=== PATIENT | male | born 2000 | race Two or more races ===

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

== ENCOUNTER 2021-12-14 21:22 | Emergency (ER) | payer MEDICAID ==
[~2021-12-14] VITALS: Ht 175.3 cm; Wt 72.6 kg
[2021-12-14 21:25] VITALS: BP 117/91
== END 2021-12-14 23:39 | disposition home or self-care (01) ==
LOC: ER 21:25
DX: S00.31XA Abrasion of nose, initial encounter (principal); Y04.2XXA Assault by strike against or bumped into by another person, initial encounter; Y93.89 Activity, other specified; Y92.89 Other specified places as the place of occurrence of the external cause; Y99.8 Other external cause status
CPT/HCPCS: 70486

== ENCOUNTER 2023-10-19 22:11 | Emergency (ER) | payer SELFPAY ==
[~2023-10-19] VITALS: Ht 175.3 cm; Wt 80.8 kg
[2023-10-19 22:43] VITALS: BP 129/71; PULSE 71; RESP 16; O2SAT 99
[2023-10-20] MEDS ORDERED: IBUP1TAB5 PO (01:54)
[2023-10-20] MEDS ORDERED: KETOROLAC TROMETH 60MG/2ML VIAL IM ONE (02:00)
[2023-10-20] MEDS ORDERED: HYDROcodone-ACET 5/325MG TAB PO ONE (02:00)
== END 2023-10-20 03:17 | disposition home or self-care (01) ==
LOC: ER 22:11
DX: S93.402A Sprain of unspecified ligament of left ankle, initial encounter (principal); X50.1XXA Overexertion from prolonged static or awkward postures, initial encounter; Y93.23 Activity, snow (alpine) (downhill) skiing, snowboarding, sledding, tobogganing and snow tubing; Y92.89 Other specified places as the place of occurrence of the external cause; Y99.8 Other external cause status
CPT/HCPCS: 29515; 73610; 96372; 99283; J1885

== ENCOUNTER 2025-01-25 01:00 | Emergency (ER) | payer MEDICAID, OTHER ==
[~2025-01-25] VITALS: Ht 175.3 cm; Wt 81.8 kg
[~2025-01-25 01:00] MED LIST: IBUP1TAB5 PO
[2025-01-25 01:07] VITALS: BP 124/62; PULSE 65; RESP 14; TEMP 97.9; O2SAT 95
[2025-01-25] MEDS ORDERED: NALOXONE HCL 1MG/ML 2ML SYRINGE IV ONE (01:15)
== END 2025-01-25 01:36 | disposition left against medical advice (07) ==
LOC: EDBD 01:00 → ER 01:00
DX: T40.411A Poisoning by fentanyl or fentanyl analogs, accidental (unintentional), initial encounter (principal); Z53.21 Procedure and treatment not carried out due to patient leaving prior to being seen by health care provider; Y92.89 Other specified places as the place of occurrence of the external cause

== ENCOUNTER 2025-01-25 01:48 | Inpatient (IN) | payer MEDICAID, OTHER ==
[~2025-01-25] VITALS: Ht 175.3 cm; Wt 68.2 kg
[2025-01-25 02:00] VITALS: PULSE 67; RESP 11; O2SAT 99
--- NOTE | 2025-01-25 03:16 | ED.PDOC ---
History of Present Illness HPI Comments 24 y/o M, with a history of polysubstance abuse, is BIBA for c/o overdose, today. Per EMS report, patient's girlfriend called after endorsing on patient becoming altered after reported fentanyl use, earlier, this morning. EMS notes positive response from patient with 0.5mg Narcan use. Patient, at time of ass essment, denies any fentanyl use and reports using a "blunt" instead. He denies any symptoms at this time. Chief Complaint: Overdose Time Seen by MD: 00:30 Primary Care Provider: TYREE Reviewed Notes: Nurses Notes, Medications, Allergies Allergies: Coded Allergies: NO KNOWN ALLERGIES (Unverified , 07/22/11) Home Meds Active Scripts Ibuprofen Micronized (Ibuprofen) 600 Mg Tab, 1 TAB PO Q6H, #20 TAB As needed for pain Prov:RUFINO ZHAO DIGITAL MEDIA INTERN 10/20/23 Information Source: Patient Mode of Arrival: Ambulatory Past Medical History PAST MEDICAL HISTORY: Denies Surgical History: Denies all surgeries Family History Family History: Reviewed,noncontributory to illness, No family hx of Cancer, No family hx of DM, No family hx of Heart reed, No family hx of HTN, No family hx ofKidney reed, No family hx of Liver reed, No family hx of Lung reed, No family hx of Stroke Social History Smoker: Non-Smoker Alcohol: Denies ETOH Use Drugs: Marijuana, Other (fentanyl ) Lives In: Home All Other Systems: Reviewed and Negative (Comprehensive systems review obtained and negative except for what is stated in the HPI.) Physical Exam Exam Comments slow and deliberate speech, mildly lethargic, holds proper conversation, follows commands, is oriented, denies fentanyl use General Appearance: No Apparent Distress, Normal HEENT: Pharynx Normal, TMs Normal, Other (3mm pupils bilaterally, otherwise normal HEENT exam ) Neck: Full Range of Motion, Non-Tender, Normal, Normal Inspection Respiratory: Chest Non-Tender, Lungs Clear, No Accessory Muscle Use, No Respiratory Distress, Normal Breath Sounds Cardiovascular: No Edema, No JVD, No Murmur, No Gallop, Normal Peripheral Pulses, Regular Rate/Rhythm Breast Exam: Deferred Gastrointestinal: No Organomegaly, Non Tender, No Pulsatile Mass, Normal Bowel Sounds, Soft Genitalia: Deferred Pelvic: Deferred Rectal: Deferred Extremities: No calf tenderness, Normal capillary refill, Normal inspection, Normal range of motion, Non-tender, No pedal edema Musculoskeletal : Apperance: Normal Neurologic: Alert, 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 Was a procedure done?: No Differential Dx Considerations may include: substance overdose, opioid dependency, encephalopathy, electrolyte imbalance, dehydration X-Ray, Labs, Meds, VS Vital Signs Date Time Temp Pulse Resp B/P (MAP) Pulse Ox O2 Delivery O2 Flow Rate FiO2 01/25/25 01:55 98.5 80 18 115/80 (92) 97 98.5 Time of 1ST Reevaluation: 01:00 Reevaluation 1ST: Unchanged Time of 2ND Reevaluation: 03:17 Reevaluation 2ND: Unchanged Patient Education/Counseling: Diagnosis, Treatment, Prognosis, Need For Follow Up Family Education/Counseling: Diagnosis, Treatment, Prognosis, Need For Follow Up, No Family Present Additional Information Previous visit documents reviewed: October 19, 2023 encounter for ankle injury The following tests were ordered, and results were reviewed by me: n/a Additional Information was gathered from interviewing the following independent historians: EMS I reviewed and agreed with the following test results read by other providers: n/a I discussed treatment and results with medical personnel and: Patientand girl friend pt continues to sleep, but easily waken with light tactile stimulation. his girl friend reports that he only used fentanyl, and no other drugs. although pt is easily waken, he continues to be somewhat lethargic, so we will admit him for obs Departure 1 Departure Time of Disposition: 03:19 Impression: Primary Impression: Toxic encephalopathy Additional Impression: Substance abuse Disposition: 09 ADMITTED INPATIENT Admit to: Tele Condition: Stable Discharged With: Self, Significant Other Critical Care Note Critical Care Time?: Yes (55 min-critical care time only) Critical care comment: Due to concerns for patients condition deteriorating, the care required my highest level of attention and readiness to intervene. I assessed the patient, reviewed the medical records, ordered the appropriate tests and treatments, then reassessed for results and responsiveness. I communicated with medical personnel and consultants and formulated a plan of care. Total critical care time excludes any procedures Stability Stability form required: No Heart Score Heart Score: Heart Score Response (Comments) Value History N/A 0 EKG N/A 0 Age N/A 0 Risk Factors N/A 0 Troponin N/A 0 Total 0 I personally scribed for DAYNE KAPLAN MD ([email or web address]) on 01/25/25 at 03:16. Electronically submitted by Richard Cintron ([email or web address]). DAYNE KAPLAN MD Jan 25, 2025 03:16
[2025-01-25 07:47] LABS: Cannabinoid Screen, Urine Pos (NEGATIVE); Phencyclidine Screen, Urine Pos (NEGATIVE)
[2025-01-25 07:48] LABS: Amphetamine Screen, Urine Pos (NEGATIVE); Barbiturate Scree,Urine Neg (NEGATIVE); Benzodiazephine Screen, Urine Neg (NEGATIVE); Cocaine Screen, Urine Pos (NEGATIVE); Opiate Scree,Urine Neg (NEGATIVE)
[2025-01-25 08:00] VITALS: PULSE 67; RESP 11; O2SAT 99
[2025-01-25 10:23] LABS: Basophils # (auto) 0 10 ^3/uL (0-0.2); Eosinophils # (auto) 0.2 10 ^3/uL (0-0.8); Hematocrit 38.4 % (41.0-53.0); Monocytes # (auto) 0.5 10 ^3/uL (0-1.3); Monocytes % (auto) 7.6 % (0.0-12.0); Neutrophils # (auto) 3.2 10 ^3/uL (1.6-8.6); Nucleated Red Blood Cells % 0.1 %; Red Cell Distribution Width 13.7 % (11.8-14.3); White Blood Cell 6.5 10^3/uL (4.4-10.8)
[2025-01-25 10:25] LABS: Basophils % (auto) 0.2 % (0.0-2.0); Eosinophils % (auto) 2.5 % (0.0-7.0); Hemoglobin 13.1 g/dL (13.5-17.5); Lymphocytes # (auto) 2.6 10 ^3/uL (0.4-5.4); Lymphocytes % (auto) 40.5 % (10.0-50.0); Mean Corpuscular Hemoglobin 33.6 pg (28.0-32.0); Mean Corpuscular Hgb Conc. 34.1 g/dL (32.0-36.0); Mean Corpuscular Volume 98.4 fL (80.0-100.0); Neutrophils % (auto) 49.2 % (37.0-80.0); Platelet Count (auto) 445 10^3/uL (140-450)
[2025-01-25] MEDS: SODIUM CHLORIDE 0.9% 1,000 ML IV ONE ×4 (10:37→16:18)
[2025-01-25 10:46] LABS: Alanine Aminotransferase 14 U/L (7-40); Albumin 4.6 g/dL (3.2-4.8); Alkaline Phosphatase 71 U/L (46-116); Anion Gap 4 (5-15); BUN/Creatinine Ratio 12.5 (10.0-20.0); Bilirubin, Total 0.6 mg/dL (0.2-1.0); Blood Urea Nitrogen 13 mg/dL (9-23); Calcium 9.9 mg/dL (8.7-10.4); Carbon Dioxide 31 mmol/L (20-31); Glucose 105 mg/dL (74-106); Sodium 143 mmol/L (136-145); Total Protein 6.7 g/dL (5.7-8.2)
[2025-01-25 10:48] LABS: Aspartate Aminotransferase 9 U/L (13-40); Chloride 108 mmol/L (98-107); Potassium 3.4 mmol/L (3.5-5.1)
[2025-01-25] MEDS ORDERED: ACETAMINOPHEN 325 MG TAB PO PRN (11:30)
[2025-01-25] MEDS ORDERED: MORPHINE SULFATE INJ 2 MG/ml SYRG IV PRN (11:30)
[2025-01-25] MEDS ORDERED: DOCUSATE SOD 100 MG CAP PO PRN (11:30)
[2025-01-25] MEDS ORDERED: ONDANSETRON HCL 4 MG/2 ML VIAL IV PRN (11:30)
[2025-01-25] MEDS ORDERED: NITROGLYCERIN 0.4 MG SL TAB SL PRN (11:30)
[2025-01-25] MEDS ORDERED: LORazepam 2MG/ML-1ML VIAL IV PRN (11:30)
[2025-01-25] MEDS ORDERED: HYDROcodone-ACET 5/325MG TAB PO PRN (11:30)
--- NOTE | 2025-01-25 11:44 | DVHHP2 ---
History of Present Illness Reason for Visit: Overdose History of Present Illness Wenceslao Lima is a 24-year-old male with no significant past medical history, who was brought in for drug overdose. Patient states he does not remember much from yesterday. He admits to using multiple drugs and drinking yesterday and frequently. Patient's girlfriend is at the bedside. She was with him when it happened. She states she was driving him to a friend's house, when he went unresponsive in the car. She became scared and took him to his mother's house. There EMS was called. When EMS arrived, Narcan was given, patient responded to it, and he was brought to the hospital. Patient responded to multiple doses of Narcan. Past Surgical History: None Family History: None Smoke: 1 pack per day (and vapes) ALCOHOL: heavy Drugs: Cocaine, Marijuana, Other (PCP, methamphetamines, fentanyl) Lives: Alone Domestic Violence: Neg Review of Systems Constitutional: No: Fever, Chills, Sweats, Weakness, Malaise, Other Eyes: No: Pain, Vision change, Conjunctivae inflammation, Eyelid inflammation, Other, Redness ENT: No: Ear pain, Ear discharge, Nose pain, Nose discharge, Nose congestion, Mouth pain, Mouth swelling, Throat pain, Throat swelling, Other Respiratory: No: Cough, Dry, Shortness of breath, SOB with excertion, Wheezing, Hemoptysis, Pleuritic Pain, Sputum, Wheezing, Other Cardiovascular: No: Chest Pain, Palpitations, Orthopnea, Paroxysmal Noc. Dyspnea, Edema, Lt Headedness, Other Gastrointestinal: No: Nausea, Vomiting, Abdominal Pain, Diarrhea, Constipation, Melena, Hematochezia, Other Genitourinary: No Dysuria, No Frequency, No Incontinence, No Hematuria, No Retention, No Other Musculoskeletal: No: other, neck pain, shoulder pain, arm pain, back pain, hand pain, leg pain, foot pain Skin: No: Rash, Lesions, Jaundice, Bruising, Other Neurological: Other (ALOC); No: Weakness, Numbness, Incoordination, Change in speech, Confusion, Seizures Allergies: Coded Allergies: NO KNOWN ALLERGIES (Unverified , 07/22/11) Exam Vital Signs Vital Signs Date Time Temp Pulse Resp B/P (MAP) Pulse Ox O2 Delivery O2 Flow Rate FiO2 01/25/25 10:00 73 14 101/74 (83) 98 01/25/25 08:00 Room Air* 0 21 01/25/25 08:00 97.6 97.6 General Appearance: Alert, Oriented X3, Cooperative, mild distress HEENT: Atraumatic, PERRLA, Mucous membr. moist/pink Respiratory: Clear to auscultation, Normal air movement Cardiovascular: Regular rate, Normal S1, Normal S2 Abdominal: Normal bowel sounds, Soft, No tenderness Extremities: No clubbing, No cyanosis, No edema, Normal pulses, No tenderness/swelling Skin: No rashes, No breakdown, No significant lesion Neuro: Normal gait, Normal speech, Strength at 5/5 X4 ext, Normal tone Psych/Mental Status: Mental status NL, Mood NL Labs/Xrays Labs Test 01/25/25 09:53 01/25/25 06:31 Range/Units White Blood Count 6.5 4.4-10.8 10^3/uL Red Blood Count 3.90 L 4.5-5.90 10^6/uL Hemoglobin 13.1 L 13.5-17.5 g/dL Hematocrit 38.4 L 41.0-53.0 % Mean Corpuscular Volume 98.4 80.0-100.0 fL Mean Corpuscular Hemoglobin 33.6 H 28.0-32.0 pg Mean Corpuscular Hemoglobin Concent 34.1 32.0-36.0 g/dL Red Cell Distribution Width 13.7 11.8-14.3 % Platelet Count 445 140-450 10^3/uL Mean Platelet Volume 7.0 6.9-10.8 fL Neutrophils (%) (Auto) 49.2 37.0-80.0 % Lymphocytes (%) (Auto) 40.5 10.0-50.0 % Monocytes (%) (Auto) 7.6 0.0-12.0 % Eosinophils (%) (Auto) 2.5 0.0-7.0 % Basophils (%) (Auto) 0.2 0.0-2.0 % Neutrophils # (Auto) 3.2 1.6-8.6 10 ^3/uL Lymphocytes # (Auto) 2.6 0.4-5.4 10 ^3/uL Monocytes # (Auto) 0.5 0-1.3 10 ^3/uL Eosinophils # (Auto) 0.2 0-0.8 10 ^3/uL Basophils # (Auto) 0 0-0.2 10 ^3/uL Nucleated Red Blood Cells 0.1 % Sodium Level 143 136-145 mmol/L Potassium Level 3.4 L 3.5-5.1 mmol/L Chloride Level 108 H 98-107 mmol/L Carbon Dioxide Level 31 20-31 mmol/L Anion Gap 4 L 5-15 Blood Urea Nitrogen 13 9-23 mg/dL Creatinine 1.04 0.700-1.30 mg/dL Glomerular Filtration Rate Calc 102 >90 mL/min BUN/Creatinine Ratio 12.5 10.0-20.0 Serum Glucose 105 74-106 mg/dL Calcium Level 9.9 8.7-10.4 mg/dL Total Bilirubin 0.6 0.2-1.0 mg/dL Aspartate Amino Transferase (AST) 9 L 13-40 U/L Alanine Aminotransferase (ALT) 14 7-40 U/L Alkaline Phosphatase 71 46-116 U/L Total Protein 6.7 5.7-8.2 g/dL Albumin 4.6 3.2-4.8 g/dL Urine Opiates Screen Neg NEGATIVE Urine Fentanyl Screen Pos NEGATIVE Urine Barbiturates Screen Neg NEGATIVE Urine Phencyclidine Screen Pos NEGATIVE Urine Amphetamines Screen Pos NEGATIVE Urine Benzodiazepines Screen Neg NEGATIVE Urine Cocaine Screen Pos NEGATIVE Urine Cannabinoids Screen Pos NEGATIVE Assessment/Plan Assessment/Plan Assessment: Toxic encephalopathy, Polysubstance abuse, ETOH abuse, Hypokalemia, Dehydration, Plan: Admit to Tele, Social Service consult, ETOH withdrawal assessments, Librium tapering dose, PRN Ativan, IV hydration, Telemetry monitoring, Plan discussed with: Patient, Other (Girlfriend) My Orders Orders - ANAIS SAUCEDO Procedure Category Date Status Time Urinalysis LAB 01/25/25 Logged 10:01 Electrocardigram EKG 01/25/25 Logged 10:01 Electrocardigram EKG 01/25/25 Logged 11:01 Blood Alcohol LAB 01/25/25 Logged 11:26 Date of Service: Jan 25, 2025 Billing Provider: ANAIS SAUCEDO Common Visit Codes: 40515-VINEANK INP/OBS CARE (MOD) ANAIS SAUCEDO Jan 25, 2025 11:44
[2025-01-25 12:03] LABS: Urine Bacteria None Seen /hpf (None Seen)
[2025-01-25] MEDS: chlordiazePOXIDE HCL 25 MG CAP PO SCH (12:04)
[2025-01-25] MEDS: FOLIC ACID 1 MG TAB PO ONE (12:04)
[2025-01-25] MEDS: MULTIPLE VITAMIN TAB PO ONE (12:04)
[2025-01-25] MEDS: POTASSIUM CHL 20 Meq TABLET PO ONE (12:05)
[2025-01-25] MEDS: THIAMINE 100mg/ml INJ (200mg/2ml VIAL) IM ONE (12:05)
[2025-01-25 12:27] LABS: Urine Blood Negative /uL (Negative); Urine Clarity Turbid (Clear); Urine Color Yellow (Yellow); Urine Mucus FEW (None Seen); Urine Protein, UAD TRACE (Negative); Urine Specific Gravity 1.032 (1.001-1.035); Urine Squamous Epithelial Cell FEW /hpf (<5); Urine Urobilinogen 2 mg/dL (Negative); Urine WBC 13 /HPF (0-3)
[2025-01-25] MEDS: NALOXONE HCL 0.4 MG/ML VIAL IV ONE (16:20)
[2025-01-25 20:00] VITALS: BP 100/55; PULSE 91; PULSE 93; RESP 18; TEMP 98.8; O2SAT 100
[2025-01-26] MEDS ORDERED: THIAMINE 100mg/ml INJ (200mg/2ml VIAL) IV SCH (10:00)
[2025-01-26] MEDS ORDERED: FOLIC ACID 1 MG TAB PO SCH (10:00)
[2025-01-26] MEDS ORDERED: MULTIPLE VITAMIN TAB PO SCH (10:00)
[2025-01-26] MEDS ORDERED: chlordiazePOXIDE HCL 25 MG CAP PO SCH (18:00)
[2025-01-27] MEDS ORDERED: chlordiazePOXIDE HCL 25 MG CAP PO SCH (18:00)
[2025-01-29] MEDS ORDERED: chlordiazePOXIDE HCL 25 MG CAP PO SCH (07:00)
== END 2025-01-25 22:00 | disposition left against medical advice (07) | DRG 52 ==
LOC: ER 01:48 → OVERFLOW 11:28
PROVIDERS: ADMIT Nurse Practitioner Family; ATTEND Nurse Practitioner Family
DX: G92.9 Unspecified toxic encephalopathy (principal); E86.0 Dehydration; E87.6 Hypokalemia; F10.139 Alcohol abuse with withdrawal, unspecified; F12.10 Cannabis abuse, uncomplicated; Z53.29 Procedure and treatment not carried out because of patient's decision for other reasons; F11.10 Opioid abuse, uncomplicated; F17.210 Nicotine dependence, cigarettes, uncomplicated; F16.10 Hallucinogen abuse, uncomplicated; Y90.9 Presence of alcohol in blood, level not specified; Z79.1 Long term (current) use of non-steroidal anti-inflammatories (NSAID); Z79.899 Other long term (current) drug therapy
CPT/HCPCS: 36415; 80053; 80307; 80320; 81001; 85025; 96361; 96372; 96374; 99291; G0378

== ENCOUNTER 2025-05-29 03:33 | Emergency (ER) | payer OTHER ==
[~2025-05-29] VITALS: Ht 175.3 cm; Wt 77.2 kg
[2025-05-29 03:35] VITALS: BP 110/69; PULSE 76; RESP 14; TEMP 98.4; O2SAT 95
--- NOTE | 2025-05-29 04:03 | ED.PDOC ---
History of Present Illness HPI Comments 24 year old male with a Hx of Marijuana,and Fentanyl Abuse was BIB Girlfriend to the ED for the c/c of Ingestion of an Unknown amount of an Unknown Substance w/ associated SOB, Dizziness, Lethargy, and Drowsiness. Girlfriend states that pt was at an "Unsafe house" approx 1x hour before ED arrival, where pt was given some form of "rolled up cigarette", and pt states "something was in it". Pts BS was noted to be 126, BP was 110/69, and currently SAT on 95% RA upon triage assessment. Pt is noted to be A&Ox4, and alert to place and self, and answering questions appropriately, but appears intoxicated and is noted to be slow upon responding. Pt denies any pain or other associated symptoms, modifiers, recent injuries or sick contacts present at this time. Chief Complaint: Ingestion Time Seen by MD: 03:48 Primary Care Provider: TYREE Gallagher Notes: Nurses Notes, Medications, Allergies Allergies: Coded Allergies: NO KNOWN ALLERGIES (Unverified , 07/22/11) Home Meds Active Scripts Ibuprofen Micronized (Ibuprofen) 600 Mg Tab, 1 TAB PO Q6H, #20 TAB As needed for pain Prov:RUFINO ZHAO PROPERTY MAINTENANCE TECHNICIAN 10/20/23 Information Source: Patient Mode of Arrival: Ambulatory Severity: Moderate Timing: Hours Duration: Since onset, Hours Prehospital treatment: None Past Medical History PAST MEDICAL HISTORY: Denies Surgical History: Denies all surgeries Family History Family History: Reviewed,noncontributory to illness, No family hx of Cancer, No family hx of DM, No family hx of Heart reed, No family hx of HTN, No family hx ofKidney reed, No family hx of Liver reed, No family hx of Lung reed, No family hx of Stroke Social History Smoker: Non-Smoker Alcohol: Denies ETOH Use Drugs: Marijuana, Other (Fentanyl) Lives In: Home All Other Systems: Reviewed and Negative (Comprehensive systems review obtained and negative except for what is stated in the HPI.) Physical Exam General Appearance: No Apparent Distress HEENT: Other (Pupils and face symmetric. Moist mucous membranes.) Neck: Full Range of Motion, Normal Inspection Respiratory: Lungs Clear, No Accessory Muscle Use, No Respiratory Distress, Normal Breath Sounds Cardiovascular: No Edema, No JVD, Regular Rate/Rhythm Breast Exam: Deferred Gastrointestinal: Non Tender, Soft Genitalia: Deferred Pelvic: Deferred Rectal: Deferred Extremities: Normal inspection, Normal range of motion, Non-tender, No pedal edema Neurologic: Alert (Oriented x4), Other (Ambulatory, however is staggering and appears intoxicated) Cerebellar Function: NOT DONE Reflexes: NOT DONE Skin: Dry, Normal Color, Warm Lymphatic: NOT DONE Was a procedure done? Was a procedure done?: No Differential Dx Considerations may include: Alcohol intoxication, drug intoxication, others X-Ray, Labs, Meds, VS Vital Signs Date Time Temp Pulse Resp B/P (MAP) Pulse Ox O2 Delivery O2 Flow Rate FiO2 05/29/25 03:35 98.4 76 14 110/69 95 98.4 X-Ray, Labs, Meds, VS Comment 24-year-old male with history of fentanyl abuse brought in by girlfriend for evaluation of possible intoxication Vitals unremarkable Exam remarkable for intoxicated appearance Rhythm strip independently interpreted by me: Sinus rhythm, rate 76, no ectopy. CBC, CMP, Tylenol, salicylate, alcohol, drug screen and EKG were ordered, however patient was called multiple times for blood draw and treatment with IV fluids, however there was no answer. It was assumed the patient had eloped from the ED. Time of 1ST Reevaluation: 04:18 Reevaluation 1ST: Unchanged Patient Education/Counseling: Diagnosis, Treatment, Need For Follow Up Family Education/Counseling: No Family Present SEPSIS Sepsis Screen Date sepsis recognized/suspect: May 29, 2025 Time Sepsis recognized/suspect: 034 Recent Procedure: No On Antibiotic Therapy: No Respiratory Rate >20: No Heart Rate >90: No Temp<36 C (96.8 F) or >38.3 C: No SBP <90 or MAP <65 mmHG: No New Acute Mental Status Change: No Is the patient on CPAP, BIPAP,: No Physician Orders Complete Blood Count (05/29/25 04:36) Comprehensive Metabolic Panel (05/29/25 04:36) Drug Screen (05/29/25 04:36) Acetaminophen (05/29/25 04:36) Salicylate (05/29/25 04:36) Urinalysis (05/29/25 04:36) Blood Alcohol (05/29/25 04:36) Electrocardigram (05/29/25 04:36) Sodium Chloride 0.9% (05/29/25 04:45) Vital Signs Date Time Temp Pulse Resp B/P (MAP) Pulse Ox O2 Delivery O2 Flow Rate FiO2 05/29/25 03:35 98.4 76 14 110/69 95 98.4 Departure 1 Departure Time of Disposition: 04:30 Impression: Primary Impression: Intoxication Disposition: 07 LEFT AWOL/ELOPED Condition: Fair Discharged With: Significant Other Critical Care Note Critical Care Time?: No Stability Stability form required: No Heart Score Heart Score: Heart Score Response (Comments) Value History N/A 0 EKG N/A 0 Age N/A 0 Risk Factors N/A 0 Troponin N/A 0 Total 0 I personally scribed for ANNABELLE REYES MD ([email or web address]) on 05/29/25 at 04:03. Electronically submitted by Elijah Awad ([email or web address]). ANNABELLE REYES MD May 29, 2025 04:03
[2025-05-29] MEDS ORDERED: SODIUM CHLORIDE 0.9% 2,100 ML IV ONE (04:45)
== END 2025-05-29 05:49 | disposition left against medical advice (07) ==
LOC: ER 03:33
DX: F19.129 Other psychoactive substance abuse with intoxication, unspecified (principal); F12.90 Cannabis use, unspecified, uncomplicated; Z79.899 Other long term (current) drug therapy
CPT/HCPCS: 82947